=== PATIENT | male | born 1985 | race Caucasian/White ===

== ENCOUNTER 2020-10-15 09:32 | Emergency (ER) | payer OTHER ==
[~2020-10-15 09:32] MED LIST: LODINE CAP 300300 MG PO; ZOFRAN4 MG PO
[2020-10-15 10:34] LABS: HEMOGLOBIN 15.2 gm/dl (14.0-17.5); RED BLOOD COUNT 5.01 M/UL (4.20-5.50); WHITE BLOOD COUNT 5.9 K/UL (4.5-11.0)
[2020-10-15 11:14] LABS: BUN/CREATININE RATIO 13 (0-10)
== END 2020-10-15 14:36 | disposition home or self-care (01) ==
LOC: ER1 09:32
PROVIDERS: Family Medicine
DX: R07.9 Chest pain, unspecified (principal); Z88.0 Allergy status to penicillin
CPT/HCPCS: 71045; 80053; 82550; 82553; 83874; 84484; 85025; 85379; 93005; 99285

== ENCOUNTER 2021-10-01 14:28 | Emergency (ER) | payer OTHER | END 2021-10-01 16:07 | disposition left against medical advice (07) | LOC: ER1 14:28 | DX: R10.9 Unspecified abdominal pain (principal); R19.7 Diarrhea, unspecified; R11.2 Nausea with vomiting, unspecified; K21.9 Gastro-esophageal reflux disease without esophagitis; Z88.0 Allergy status to penicillin; Z88.6 Allergy status to analgesic agent; Z87.442 Personal history of urinary calculi | CPT/HCPCS: 81001; 99281 ==

== ENCOUNTER 2022-01-11 15:27 | Emergency (ER) | payer OTHER ==
[2022-01-11 16:03] LABS: RED BLOOD COUNT 4.96 M/UL (4.20-5.50); WHITE BLOOD COUNT 7.6 K/UL (4.5-11.0)
[2022-01-11 16:45] LABS: BUN/CREATININE RATIO 17 (0-10)
== END 2022-01-11 18:49 | disposition home or self-care (01) ==
LOC: ER1 15:27
DX: B34.9 Viral infection, unspecified (principal); F17.210 Nicotine dependence, cigarettes, uncomplicated; Z87.442 Personal history of urinary calculi; Z90.49 Acquired absence of other specified parts of digestive tract; Z88.0 Allergy status to penicillin
CPT/HCPCS: 71045; 80053; 81001; 82550; 82553; 83690; 83735; 84484; 85025; 93005; 96374; 99284; J2405; Q9967

== ENCOUNTER 2022-02-02 08:12 | Emergency (ER) | payer OTHER ==
[2022-02-02 09:08] LABS: HEMOGLOBIN 15.1 gm/dl (14.0-17.5); RED BLOOD COUNT 5.04 M/UL (4.20-5.50); WHITE BLOOD COUNT 7.8 K/UL (4.5-11.0)
[2022-02-02 09:52] LABS: BUN/CREATININE RATIO 19 (0-10)
== END 2022-02-02 12:15 | disposition home or self-care (01) ==
LOC: ER1 08:12
PROVIDERS: Family Medicine
DX: R55 Syncope and collapse (principal); G43.909 Migraine, unspecified, not intractable, without status migrainosus; S46.911A Strain of unspecified muscle, fascia and tendon at shoulder and upper arm level, right arm, initial encounter; S86.911A Strain of unspecified muscle(s) and tendon(s) at lower leg level, right leg, initial encounter; S66.811A Strain of other specified muscles, fascia and tendons at wrist and hand level, right hand, initial encounter; F17.200 Nicotine dependence, unspecified, uncomplicated; Z88.1 Allergy status to other antibiotic agents; W19.XXXA Unspecified fall, initial encounter; Y93.E8 Activity, other personal hygiene; Z20.822 Contact with and (suspected) exposure to COVID-19
CPT/HCPCS: 70450; 73030; 73080; 73562; 80053; 82550; 82553; 84484; 85025; 93005; 96374; 96375; 99284; J1200; J1885; J2765; U0002